=== PATIENT | male | born 1975 | race Caucasian/White ===

== ENCOUNTER 2018-09-15 11:38 | Emergency (ER) | payer MEDICAID ==
[~2018-09-15] VITALS: Ht 180.3 cm; Wt 126.0 kg
[~2018-09-15 11:38] MED LIST: CYCL-1 PO; DILT240C96 PO; HYDR-4069 PO; IBUP-1985 PO; LOSA50TA3 PO; POTA20TA19 PO
[2018-09-15 12:21] VITALS: BP 170/129
[2018-09-15] MEDS ORDERED: HYDR-4353 PO (12:59)
[2018-09-15] MEDS ORDERED: CYCL-1 PO (12:59)
[2018-09-15] MEDS ORDERED: cyclobenzaprine 10mg tablet PO ONE (13:00)
[2018-09-15] MEDS ORDERED: HYDROcodone/acetaminophen 10/325mg tab PO ONE (13:00)
== END 2018-09-15 13:35 | disposition home or self-care (01) ==
LOC: ER 11:39
DX: S39.012A Strain of muscle, fascia and tendon of lower back, initial encounter (principal); M54.32 Sciatica, left side; I10 Essential (primary) hypertension; Z98.890 Other specified postprocedural states; Z79.899 Other long term (current) drug therapy; X50.1XXA Overexertion from prolonged static or awkward postures, initial encounter; Y93.89 Activity, other specified; Y92.89 Other specified places as the place of occurrence of the external cause; Y99.8 Other external cause status
CPT/HCPCS: 99283